=== PATIENT | male | born 1950 | race Caucasian/White ===

== ENCOUNTER 2017-05-11 09:58 | Emergency (ER) | payer BC ==
[2017-05-11 11:09] VITALS: BP 107/58
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
== END 2017-05-11 11:43 | disposition home or self-care (01) ==
LOC: UCCORT 09:58
DX: J06.9 Acute upper respiratory infection, unspecified (principal); F17.210 Nicotine dependence, cigarettes, uncomplicated
CPT/HCPCS: 87502; 99211; G0463